=== PATIENT | male | born 1990 ===

== ENCOUNTER 2024-09-06 12:38 | Outpatient (CLI) | payer OTHER, SELFPAY ==
--- NOTE | ~2024-09-06 | MR_ITS ---
MRI of the left shoulder Technique: Axial proton-density fat-sat images, coronal proton density fat-sat and T2 fat-sat images, and sagittal T1-weighted and T2 fat-sat images were acquired. Clinical History: Calcific tendinitis Findings: There is minimal AC joint degenerative change. Coracoclavicular, coracoacromial, and coraco humeral ligaments are intact. Supraspinatus and infraspinatus tendons are intact, without partial or full-thickness tear. There is small low signal focus at the distal supraspinatus tendon, compatible focal calcific tendinitis. Subs capularis tendon is intact. Tendon of long head of the biceps is intact. No labral tear evident. Inferior glenohumeral ligament is intact. No degenerative change or effusion of the glenohumeral join t. No fluid distention of the subacromial/subdeltoid bursa. No muscle atrophy or edema. Impression: 6 mm ovoid low signal focus at the distal, posterior supraspinatus tendon is most compatible with mikayla cific tendinitis. No other significant findings. Reviewed, dictated and finalized at location . Impression: 6 mm ovoid low signal focus at the distal, posterior supraspinatus tendon is mo st compatible with calcific tendinitis. No other significant findings.
== END 2024-09-06 12:39 | disposition home or self-care (01) ==
DX: M62.512 Muscle wasting and atrophy, not elsewhere classified, left shoulder (principal); M75.32 Calcific tendinitis of left shoulder
CPT/HCPCS: 73221